=== PATIENT | male | born 1975 | race Caucasian/White ===

== ENCOUNTER → 2017-07-31 | Outpatient (CLI) | payer OTHER ==
[~2017-07-31] MED LIST: ATOR10TA24 PO; GLY25 PO; GUAI120L3 PO; RANI150C17 PO; SITA1TAB17 PO; SITA1TBM4 PO; TELM80TA5 PO
[2017-07-31 11:55] LABS: PLATELET COUNT, AUTOMATED 257 K/uL (150-450)
[2017-07-31 12:07] LABS: LDL CHOLESTEROL 67 mg/dl
== END ==
LOC: LAB 11:39
PROVIDERS: ATTEND Internal Medicine
DX: I10 Essential (primary) hypertension (principal); E11.9 Type 2 diabetes mellitus without complications; E78.5 Hyperlipidemia, unspecified
CPT/HCPCS: 36415; 81001; 82040; 82043; 82247; 82310; 82374; 82435; 82465; 82565; 82947; 83036; 83718; 84075; 84132; 84155; 84295; 84443; 84450; 84460; 84478; 84520; 85025

== ENCOUNTER → 2017-08-10 | Outpatient (CLI) | payer OTHER ==
[~2017-08-10] MED LIST changes: +ALBU8.5H IH; +AZIT-17 PO; +FLUT16SP19 NS; +PANT40TA65 PO
--- NOTE | 2017-08-10 12:41 | RADIOLOGY IMAGING REPORT ---
FACILITY: [facility] PATIENT NAME: Ehsan Amaya : 1975 MR: [id number] V: [id number] EXAM DATE: ORDERING PHYSICIAN: VENTURA VANEGAS TECHNOLOGIST: Location: [facility] [place] Patient: Ehsan Amyaa : 1975 Visit/Account:[id number] Date of Sevice: 08/10/2017 2 VIEWS CHEST INDICATION: Cough for 2 weeks and shortness of breath. COMPARISON: None available FINDINGS: Cardiomediastinal silhouette and pulmonary vessels within normal limits. There is no focal infiltrate or lobar consolidation. There is no pneumothorax or pleural effusion. No nodule. Upper abdomen is unremarkable. No acute bony abnormality. IMPRESSION: 1. No acute cardiopulmonary process. Report Dictated By: Tonny Sims at 08/10/2017 12:36 PM Report E-Signed By: Tonny Sims at 08/10/2017 12:37 PM WSN:[id number]
== END ==
LOC: RAD 11:44
PROVIDERS: ATTEND Internal Medicine
DX: J40 Bronchitis, not specified as acute or chronic (principal); I10 Essential (primary) hypertension
CPT/HCPCS: 71046

== ENCOUNTER → 2017-11-03 | Outpatient (CLI) | payer OTHER ==
[2017-11-03 12:43] LABS: PLATELET COUNT, AUTOMATED 240 K/uL (150-450)
[2017-11-03 13:19] LABS: LDL CHOLESTEROL 46 mg/dl
== END ==
LOC: LAB 12:19
PROVIDERS: ATTEND Internal Medicine
DX: I10 Essential (primary) hypertension (principal); E11.9 Type 2 diabetes mellitus without complications; E78.5 Hyperlipidemia, unspecified; J40 Bronchitis, not specified as acute or chronic
CPT/HCPCS: 36415; 82040; 82247; 82310; 82374; 82435; 82465; 82565; 82947; 83036; 83718; 84075; 84132; 84155; 84295; 84450; 84460; 84478; 84520; 85025

== ENCOUNTER → 2018-12-03 | Outpatient (CLI) | payer OTHER ==
[~2018-12-03] MED LIST changes: +ATOR20TA65 PO; +LOSA100T75 PO
--- NOTE | 2018-12-03 13:55 | EKG ---
FACILITY: [facility] PATIENT NAME: MAGI ARGUETA : [id number] MR: [id number] V: [id number] EXAM DATE: ORDERING PHYSICIAN: VENTURA VANEGAS TECHNOLOGIST: CHAYA Test Reason : NUMBNESS Blood Pressure : / mmHG Vent. Rate : 072 BPM Atrial Rate : 072 BPM P-R Int : 166 ms QRS Dur : 094 ms QT Int : 380 ms P-R-T Axes : -29 -08 -26 degrees QTc Int : 416 ms Normal sinus rhythm Inferior infarct , age undetermined Abnormal ECG No previous ECGs available Confirmed by VENTURA VANEGAS ([id number]) on 12/03/2018 4:36:52 PM Referred By: MELL Confirmed By:VENTURA VANEGAS
== END ==
LOC: RESP 13:20
PROVIDERS: ATTEND Internal Medicine
DX: R94.31 Abnormal electrocardiogram [ECG] [EKG] (principal)